=== PATIENT | male | born 1990 | race American Indian/Alaskan Native ===

== ENCOUNTER 2021-09-28 22:49 | Inpatient (IN) | payer OTHER ==
[2021-09-29] MEDS ORDERED: SODIUM CHLORIDE 0.9% 1000 ML IV SOLN IV ONE (03:44)
[2021-09-29 04:02] LABS: Basophils # (Auto) 0.1 K/mm3 (0.0-0.1); Basophils % (Auto) 0.6 % (0.0-1.8); Eosinophils # (Auto) 0.1 K/mm3 (0.0-0.4); Eosinophils % (Auto) 0.8 % (0.0-4.3); Hemoglobin 12.6 gm/dl (11.8-15.2); Lymphocytes # (Auto) 1.5 K/mm3 (1.2-5.4); Lymphocytes % (Auto) 14.6 % (13.4-35.0); Mean Corpuscular HGB Conc 32 % (32-34); Mean Corpuscular Volume 86 fl (84-94); Monocytes # (Auto) 0.9 K/mm3 (0.0-0.8); Monocytes % (Auto) 9.1 % (0.0-7.3); Platelet Count 282 K/mm3 (140-440); Red Blood Count 4.53 M/mm3 (3.65-5.03); Red Cell Distribution Width 13.2 % (13.2-15.2)
[2021-09-29 04:30] LABS: BUN/Creatinine Ratio 9; Blood Urea Nitrogen 9 mg/dL (9-20); Hemolysis Index 8
[2021-09-29] MEDS ORDERED: INSULIN REGULAR, HUMAN 100 UNITS/1 ML IV ONE (04:34)
--- NOTE | 2021-09-29 06:31 | XRay Report ---
RIGHT TIBIA-FIBULA 2 VIEW(S) INDICATION / CLINICAL INFORMATION: wound to lower leg COMPARISON: None available. FINDINGS: BONES / JOINT(S): No acute fracture or subluxation. No significant arthritis. SOFT TISSUES: No significant abnormality. ADDITIONAL FINDINGS: None. Signer Name: Da Jaffe DO Signed: 09/29/2021 6:27 AM Workstation Name: [id number]
--- NOTE | 2021-09-29 07:06 | Emergency Department Report ---
ED General Adult HPI - General Chief complaint: Wound/Laceration Stated complaint: POSS LEG INFECTION/OPEN WOUND Time Seen by Provider: 09/29/21 03:40 Source: patient Mode of arrival: Ambulatory Limitations: No Limitations - History of Present Illness Initial comments: 31-year-old male with history of diabetes presents emergency department complaining of wound to his right lower extremity which got worsened after he went swimming. States that he had a wound present for an overall week and then he put a protective bandage on it to get into a chlorinated swimming pool and after doing so noticed that the actual wound began to spread. He has been tr mae to treat it with [id number] medications but the does not appear to have been responding now there is normal red and swollen [place] 6 of the treatment alternatives but ports no fever, chills, sweats. No abdomen abdominal pain,. States that he is compliant with his treatment Quality: dull Consistency: constant Improves with: none Worsens with: movement Associated Symptoms: denies: malaise, syncope, weakness - Related Data Allergies Allergy/AdvReac Type Severity Reaction Status Date / Time No Known Allergies Allergy Verified 09/28/21 23:08 ED Review of Systems ROS: Stated complaint: POSS LEG INFECTION/OPEN WOUND Other details as noted in HPI Comment: All other systems reviewed and negative ED Past Medical Hx - Past Medical History Previous Medical History?: Yes Hx Diabetes: Yes - Surgical History Past Surgical History?: No - Social History Smoking Status: Never Smoker Substance Use Type: None ED Physical Exam - General Limitations: No Limitations General appearance: alert, in no apparent distress - Head Head exam: Present: atraumatic, normocephalic - Eye Eye exam: Present: normal appearance, PERRL, EOMI Pupils: Present: normal accommodation - ENT ENT exam: Present: normal exam, normal orophraynx, mucous membranes moist, TM's normal bilaterally - Neck Neck exam: Present: normal inspection, tenderness, full ROM - Respiratory Respiratory exam: Present: normal lung sounds bilaterally. Absent: respiratory distress, wheezes, rales, chest wall tenderness, accessory muscle use - Cardiovascular Cardiovascular Exam: Present: regular rate, normal rhythm. Absent: systolic murmur, diastolic murmur, rubs, gallop - GI/Abdominal GI/Abdominal exam: Present: soft, normal bowel sounds - Rectal Rectal exam: Present: deferred - Extremities Exam Extremities exam: Present: normal inspection, tenderness, normal capillary refill - Expanded Lower Extremity Exam Right Lower Leg exam: Present: tenderness, swelling, ecchymosis 1 - 3 venous stasis ulcers to this region that the central being largest 3 cm in diameter and the other is being 1 to 1.5 cm. Local swelling and cellulitis is noted. No lymphangitis present. The wounds appear to be fairly clean with minimal exudate. No discharge is noted. No subcutaneous emphysema is present. - Back Exam Back exam: Present: normal inspection. Absent: CVA tenderness (R), CVA tenderness (L) - Neurological Exam Neurological exam: Present: alert, oriented X3 - Psychiatric Psychiatric exam: Present: normal affect, normal mood - Skin Skin exam: Present: warm, dry, intact, normal color. Absent: rash ED Course Vital Signs 09/28/21 23:06 Temperature 99.3 F Pulse Rate 122 H Respiratory 18 Rate Blood Pressure 122/70 [Left] O2 Sat by Pulse 98 Oximetry ED Medical Decision Making - Lab Data Result diagrams: 09/29/21 03:46 09/29/21 03:46 - Medical Decision Making A 31-year-old diabetic male with what appears to be uncontrolled diabetes with blood sugar being over 600 in conjunction with elevated lactic acid accompanying this progressively worsening venous stasis ulcer wound that is not responding to outpatient therapy. He is already sought treatment at the urgent care x2 and and however the wound continues to progress despite treatment efforts. He has been dosed with 900 of clindamycin as well as fluids along the sepsis protocol. Case was discussed with the hospitalist who is aware of the findings and agrees with the admission. I did discuss the admission with Sebastian as well. Critical care attestation.: If time is entered above; I have spent that time in minutes in the direct care of this critically ill patient, excluding procedure time. ED Disposition Clinical Impression: Infected ulcer of skin, Hyperglycemia Disposition: HOME / SELF CARE / HOMELESS Is pt being admited?: Yes Does the pt Need Aspirin: No Condition: Stable
[2021-09-29] MEDS ORDERED: NALOXONE 0.4 MG/1 ML INJ IV PRN (07:38)
[2021-09-29] MEDS ORDERED: DEXTROSE 50% IN WATER (25GM) 50 ML SYRINGE IV PRN (07:38)
--- NOTE | 2021-09-29 07:38 | History and Physical Report ---
History of Present Illness Date of examination: 09/29/21 Date of admission: 09/29/2021 Chief complaint: Left lower extremity chronic open wound/hyperglycemia History of present illness: 31-year-old male patient with significant past medical history of type 2 diabetes mellitus on insulin, dyslipidemia presented to the emergency room with infected diabetic leg wound which patient had for nearly 1 month. Patient denies any history of trauma, patient is on insulin for his diabetes, initial work-up is consistent with severe hyper glycemia with blood sugars of more than 600, however patient did not have acidosis or ketosis and patient was not in DKA. Patient denies any fever, no nausea vomiting or abdominal pain Patient claims compliance with his medications except for the last few days. X-ray leg tibia and fibula reveal no acute fracture or subluxation no signif icant arthritis. Past History Past Medical History: diabetes, hypertension, hyperlipidemia Past Surgical History: denies: No surgical history Social history: denies: smoking, alcohol abuse, prescription drug abuse Family history: no significant family history Medications and Allergies Allergies Allergy/AdvReac Type Severity Reaction Status Date / Time No Known Allergies Allergy Verified 09/28/21 23:08 Home Medications Medication Instructions Recorded Confirmed Last Taken Type AtorvaSTATin [Lipitor] 10 mg PO QHS 09/29/21 09/29/21 1 Day Ago History ~09/28/21 metFORMIN [Glucophage] 500 mg PO QDAY 09/29/21 09/29/21 1 Day Ago History ~09/28/21 Review of Systems Constitutional: weakness, no weight loss, no weight gain, no fever Ears, nose, mouth and throat: no nasal congestion, no nasal discharge Cardiovascular: no chest pain, no orthopnea, no shortness of breath Respiratory: no cough, no shortness of breath Gastrointestinal: no abdominal pain, no nausea, no vomiting Genitourinary Male: no dysuria, no hematuria Musculoskeletal: no myalgias, no arthritis Exam - Constitutional Vitals: Temp Pulse Resp BP Pulse Ox 99.3 F 122 H 18 122/70 98 09/28/21 23:06 09/28/21 23:06 09/28/21 23:06 09/28/21 23:06 09/28/21 23:06 General appearance: Present: no acute distress, well-nourished - EENT Eyes: Present: PERRL, EOM intact - Neck Neck: Present: supple, normal ROM - Respiratory Respiratory effort: normal Respiratory: negative: diminished, rales, rhonchi, wheezing - Cardiovascular Rhythm: regular Heart Sounds: Present: S1 & S2 - Extremities Extremities: No edema, abnormal (Right lower extremity leg nonhealing multiple diabetic ulcers) Extremity abnormal: edema - Abdominal General gastrointestinal: Present: soft, non-tender, non-distended, normal bowel sounds - Integumentary Integumentary: Present: clear, warm - Musculoskeletal Musculoskeletal: strength equal bilaterally, generalized weakness - Psychiatric Psychiatric: appropriate mood/affect, cooperative - Neurologic Neurologic: moves all extremities Results - Labs CBC & Chem 7: 09/29/21 03:46 09/29/21 08:00 Labs: Abnormal lab results 09/29/21 09/29/21 09/29/21 Range/Units 03:46 03:46 04:00 [place] % (Auto) 9.1 H (0.0-7.3) % [place] # (Auto) 0.9 H (0.0-0.8) K/mm3 Seg Neutrophils % 74.9 H (40.0-70.0) % Sodium 129 L (137-145) mmol/L Chloride 93.4 L (98-107) mmol/L Glucose 640 H* (75-100) mg/dL Lactic Acid 2.50 H* (0.7-2.0) mmol/L Assessment and Plan - Patient Problems (1) Hyperglycemia Onset Date: ~09/29/21 Current Visit: Yes Status: Acute Plan to address problem: Patient blood sugars more than 600 due to noncompliance with diabetic medication received 10 units Regular insulin IV x1 by ID ED Accu-Cheks, sliding scale coverage, ADA diet, long-acting insulin Patient is not in acidosis or ketosis anion gap is within normal limits Rigorous IV hydration, long-acting insulin Novolin 70/30, diabetic education, nutrition education Possible home health nurse at discharge for disease monitoring Hemoglobin A1c (2) Hyponatremia Onset Date: ~09/29/21 Current Visit: Yes Status: Acute Plan to address problem: Hyponatremia, probably pseudohyponatremia due to Very high blood sugars, as blood sugars improve, sodium levels will improve Vigorous IV hydration monitor electrolytes (3) Pseudohyponatremia Onset Date: ~09/29/21 Current Visit: Yes Status: Acute Plan to address problem: Due to severe hyperglycemia, as blood sugars improved sodium levels improved IV normal saline monitor electrolytes check magnesium (4) Lactic acidosis due to diabetes mellitus Onset Date: ~09/29/21 Current Visit: Yes Status: Acute Plan to address problem: Severe lactic acidosis probably secondary to sepsis due to cellulitis nonhealing ulcer As well as due to severe hyperglycemia IV fluids, treat the underlying cause, closely monitor lactate levels (5) Non-healing ulcer of foot Onset Date: ~09/29/21 Current Visit: Yes Status: Acute Qualifiers: Laterality: right Plan to address problem: Right-sided nonhealing foot ulcer Due to diabetes mellitus. Elevate the limb, empiric antibiotics Vanco Zosyn Wound care, wound cultures, control of blood sugars (6) Diabetic foot ulcer Current Visit: Yes Status: Acute Qualifiers: Diabetes mellitus type: type 2 Laterality: right Plan to address problem: Diabetic foot and leg ulcers right Elevate the limb, wound care, empiric antibiotics Vanco and Zosyn Wound care, wound cultures, ID consult Surgical consult if debridement is needed needed (7) History of type 2 diabetes mellitus Current Visit: Yes Status: Acute Plan to address problem: , Monitor blood sugars, Accu-Chek, sliding scale coverage, ADA diet, long-acting insulin as needed. We will closely monitor the patient and adjust management as needed HbA1c 14.0 (8) Dyslipidemia Current Visit: Yes Status: Acute Plan to address problem: Low-cholesterol diet, and statin (9) DVT prophylaxis Current Visit: Yes Status: Acute Plan to address problem: Subcu Lovenox/SCDs
[2021-09-29] MEDS ORDERED: ACETAMINOPHEN 325 MG TAB PO PRN (08:00)
[2021-09-29 08:36] LABS: Alanine Aminotransferase 13 units/L (7-56); Albumin 4.2 g/dL (3.9-5); BUN/Creatinine Ratio 10; Blood Urea Nitrogen 8 mg/dL (9-20); Calcium 8.9 mg/dL (8.4-10.2); Chol/HDL Ratio 4.45 %; HDL Cholesterol 42 mg/dL (40-59); Hemolysis Index 7; LDL Cholesterol,Direct 135 mg/dL (50-130)
[2021-09-29] MEDS ORDERED: MORPHINE 4 MG/1 ML INJ IV PRN (09:00)
[2021-09-29] MEDS ORDERED: ONDANSETRON 4 MG/2 ML INJ IV PRN (09:00)
[2021-09-29] MEDS ORDERED: MORPHINE 2 MG/1 ML INJ IV PRN (09:00)
[2021-09-29] MEDS ORDERED: ENOXAPARIN 40 MG/0.4 ML INJ SUB-Q SCH (10:00)
[2021-09-29] MEDS ORDERED: VANCOMYCIN/NS 1 GM/250 ML 1 GM/250 ML BAG IV SCH (10:00)
[2021-09-29] MEDS ORDERED: VANCOMYCIN PHARMACY TO DOSE IV SCH (10:00)
[2021-09-29] MEDS: INSULIN NPH/REGULAR 70/30 INJ SUB-Q SCH ×2 (10:44→18:07)
[2021-09-29] MEDS ORDERED: VANCOMYCIN 1,500 MG in SODIUM CHLORIDE 0.9% 500 ML 500 ML IV ONE (11:00)
[2021-09-29] MEDS: INSULIN REGULAR, HUMAN 100 UNITS/1 ML SUB-Q SCH ×4 (15:57→22:48)
[2021-09-29] MEDS: PIPERACILLIN/TAZOBACTAM 3.375 3.375 GM/50 ML BAG IV SCH ×2 (15:58→18:13)
[2021-09-29] MEDS: SODIUM CHLORIDE 0.9% 1000 ML 1,000 ML IV SCH (16:55)
[2021-09-29] MEDS ORDERED: oxyCODONE /ACETAMINOPHEN 5-325MG TAB PO PRN (17:08)
[2021-09-29] MEDS ORDERED: ZOLPIDEM 5 MG TAB PO PRN (22:00)
[2021-09-29] MEDS: VANCOMYCIN 1,250 MG in SODIUM CHLORIDE 0.9% 250ML 250 ML IV SCH (22:48)
[2021-09-29] MEDS: ENOXAPARIN 40 MG/0.4 ML INJ SUB-Q SCH (22:48)
[2021-09-30] MEDS: PIPERACILLIN/TAZOBACTAM 3.375 3.375 GM/50 ML BAG IV SCH (02:12)
[2021-09-30] MEDS: SODIUM CHLORIDE 0.9% 1000 ML 1,000 ML IV SCH ×3 (02:13→23:06)
[2021-09-30 05:09] LABS: Basophils % (Auto) 0.4 % (0.0-1.8); Eosinophils # (Auto) 0.2 K/mm3 (0.0-0.4); Eosinophils % (Auto) 2.6 % (0.0-4.3); Hematocrit 34.4 % (35.5-45.6); Hemoglobin 11.6 gm/dl (11.8-15.2); Lymphocytes % (Auto) 27.2 % (13.4-35.0); Mean Corpuscular HGB Conc 34 % (32-34); Mean Corpuscular Volume 84 fl (84-94); Monocytes # (Auto) 0.7 K/mm3 (0.0-0.8); Monocytes % (Auto) 9.4 % (0.0-7.3); Platelet Count 280 K/mm3 (140-440); Red Blood Count 4.09 M/mm3 (3.65-5.03)
[2021-09-30 05:35] LABS: BUN/Creatinine Ratio 10; Blood Urea Nitrogen 8 mg/dL (9-20); Calcium 8.3 mg/dL (8.4-10.2); Hemolysis Index 0
[2021-09-30] MEDS: INSULIN NPH/REGULAR 70/30 INJ SUB-Q SCH ×2 (08:27→17:13)
[2021-09-30] MEDS: INSULIN REGULAR, HUMAN 100 UNITS/1 ML SUB-Q SCH ×4 (08:28→22:49)
--- NOTE | 2021-09-30 08:37 | Progress Note ---
Assessment and Plan Assessment and plan: -- Hyperglycemia/hyperosmolar hyperglycemia Patient blood sugars more than 600 due to noncompliance with diabetic medication received 10 units Accu-Cheks, sliding scale coverage, ADA diet, Novolin 70/30 Rigorous IV hydration, long-acting insulin Novolin 70/30, diabetic education, nutrition education Possible home health nurse at discharge for disease monitoring Hemoglobin A1c 14.0 --Hyponatremia; Hyponatremia, probably pseudohyponatremia due to Very high blood sugars, as blood sugars improve, sodium levels will improve Vigorous IV hydration monitor electrolytes --Pseudohyponatremia Due to severe hyperglycemia, as blood sugars improved sodium levels improved IV normal saline monitor electrolytes check magnesium --Lactic acidosis due to diabetes mellitus Severe lactic acidosis probably secondary to sepsis due to cellulitis nonhealing ulcer As well as due to severe hyperglycemia IV fluids, treat the underlying cause, closely monitor lactate levels --Non-healing ulcer of foot Right-sided nonhealing foot ulcer Due to diabetes mellitus. Elevate the limb, empiric antibiotics Vanco Zosyn Wound care, wound cultures, control of blood sugars -- Diabetic foot ulcer Diabetic foot and leg ulcers right Elevate the limb, wound care, empiric antibiotics Vanco and Zosyn Wound care, wound cultures, ID consult Surgical consult if debridement is needed needed -- History of type 2 diabetes mellitus, Continue Accu-Cheks sliding scale coverage ADA diet Long-acting insulin, HbA1c 14.0 --Dyslipidemia Low-cholesterol diet, and statin --DVT prophylaxis Subcu Lovenox/SCDs History Interval history: I have seen and examined the patient at the bedside Patient's chart and medications reviewed Patient feels slightly better complains of pain in the leg Blood sugars reasonable control No new events reported by the nursing Vital signs noted Hospitalist Physical - Constitutional Vitals: Temp Pulse Resp BP Pulse Ox 98.0 F 88 20 117/75 97 09/29/21 22:15 09/29/21 22:15 09/29/21 23:36 09/29/21 22:15 09/30/21 08:09 General appearance: Present: no acute distress, well-nourished - EENT Eyes: Present: PERRL, EOM intact - Neck Neck: Present: supple, normal ROM - Respiratory Respiratory effort: normal Respiratory: bilateral: diminished, negative: rales, rhonchi, wheezing - Cardiovascular Rhythm: regular Heart Sounds: Present: S1 & S2 - Extremities Extremities: no ischemia, abnormal (Diabetic foot ulcers right leg) - Abdominal General gastrointestinal: soft, non-tender, non-distended, normal bowel sounds - Integumentary Integumentary: Present: clear, warm - Psychiatric Psychiatric: appropriate mood/affect, cooperative - Neurologic Neurologic: CNII-XII intact, moves all extremities Results - Labs CBC & Chem 7: 09/30/21 04:16 09/30/21 04:16 Labs: Laboratory Last Values WBC 7.3 K/mm3 (4.5-11.0) 09/30/21 04:16 RBC 4.09 M/mm3 (3.65-5.03) 09/30/21 04:16 Hgb 11.6 gm/dl (11.8-15.2) L 09/30/21 04:16 Hct 34.4 % (35.5-45.6) L 09/30/21 04:16 MCV 84 fl (84-94) 09/30/21 04:16 MCH 28 pg (28-32) 09/30/21 04:16 MCHC 34 % (32-34) 09/30/21 04:16 RDW 13.0 % (13.2-15.2) L 09/30/21 04:16 Plt Count 280 K/mm3 (140-440) 09/30/21 04:16 Lymph % (Auto) 27.2 % (13.4-35.0) 09/30/21 04:16 [place] % (Auto) 9.4 % (0.0-7.3) H 09/30/21 04:16 Eos % (Auto) 2.6 % (0.0-4.3) 09/30/21 04:16 Baso % (Auto) 0.4 % (0.0-1.8) 09/30/21 04:16 Lymph # (Auto) 2.0 K/mm3 (1.2-5.4) 09/30/21 04:16 [place] # (Auto) 0.7 K/mm3 (0.0-0.8) 09/30/21 04:16 Eos # (Auto) 0.2 K/mm3 (0.0-0.4) 09/30/21 04:16 Baso # (Auto) 0.0 K/mm3 (0.0-0.1) 09/30/21 04:16 Seg Neutrophils % 60.4 % (40.0-70.0) 09/30/21 04:16 Seg Neutrophils # 4.4 K/mm3 (1.8-7.7) 09/30/21 04:16 VBG pH 7.364 (7.320-7.420) 09/29/21 05:01 Sodium 137 mmol/L (137-145) 09/30/21 04:16 Potassium 3.8 mmol/L (3.6-5.0) 09/30/21 04:16 Chloride 104.9 mmol/L (98-107) 09/30/21 04:16 Carbon Dioxide 24 mmol/L (22-30) 09/30/21 04:16 Anion Gap 12 mmol/L 09/30/21 04:16 BUN 8 mg/dL (9-20) L 09/30/21 04:16 Creatinine 0.8 mg/dL (0.8-1.3) 09/30/21 04:16 Estimated GFR > 60 ml/min 09/30/21 04:16 BUN/Creatinine Ratio 10 % 09/30/21 04:16 Glucose 166 mg/dL (75-100) H 09/30/21 04:16 POC Glucose 178 mg/dL (70-105) H 09/30/21 07:21 Hemoglobin A1c 14.0 % (4-6) H 09/29/21 08:00 Lactic Acid 1.70 mmol/L (0.7-2.0) 09/29/21 07:01 Calcium 8.3 mg/dL (8.4-10.2) L 09/30/21 04:16 Total Bilirubin 0.50 mg/dL (0.1-1.2) 09/29/21 08:00 AST 12 units/L (5-40) 09/29/21 08:00 ALT 13 units/L (7-56) 09/29/21 08:00 Alkaline Phosphatase 117 units/L (35-129) 09/29/21 08:00 Total Protein 8.1 g/dL (6.3-8.2) 09/29/21 08:00 Albumin 4.2 g/dL (3.9-5) 09/29/21 08:00 Albumin/Globulin Ratio 1.1 % 09/29/21 08:00 Triglycerides 95 mg/dL (2-149) 09/29/21 08:00 Cholesterol 187 mg/dL (50-199) 09/29/21 08:00 LDL Cholesterol Direct 135 mg/dL (50-130) H 09/29/21 08:00 HDL Cholesterol 42 mg/dL (40-59) 09/29/21 08:00 Cholesterol/HDL Ratio 4.45 % 09/29/21 08:00 Microbiology: Microbiology 09/29/21 04:00 Peripheral/Venous Blood Culture - Preliminary NO GROWTH AFTER 24 HOURS 09/29/21 04:30 Peripheral/Venous Blood Culture - Preliminary NO GROWTH AFTER 24 HOURS [place]/IV: Voiding Method Toilet Active Medications - Current Medications Current Medications: Generic Name Dose Route Start Last Admin Trade Name Freq PRN Reason Stop Dose Admin Acetaminophen 650 mg 09/29/21 08:00 Acetaminophen 325 Mg Tab PO Q4H PRN Pain MILD(1-3)/Fever >100.5/GRIFFIN Bisacodyl 10 mg 09/29/21 10:00 Bisacodyl 10 Mg Rect Supp PA QDAY PRN Constipation unrelieved by MOM Dextrose 50 ml 09/29/21 07:38 Dextrose 50% In Water (25gm) 50 Ml Syringe IV Q30MIN PRN Hypoglycemia Protocol Enoxaparin Sodium 40 mg 09/29/21 22:00 09/29/21 22:48 Enoxaparin 40 Mg/0.4 Ml Inj SUB-Q 40 mg QDAY@2200 CELINA Administration Protocol Sodium Chloride 1,000 mls @ 150 mls/hr 09/29/21 09:00 09/30/21 02:13 Nacl 0.9% 1000 Ml IV 150 mls/hr DIRECT CELINA Administration Vancomycin HCl 1,250 mg/ 275 mls @ 166.667 mls/hr 09/29/21 23:00 09/29/21 22:48 Sodium Chloride IV 166.667 mls/hr Q12H CELINA Administration Ceftriaxone Sodium 2 gm in 100 mls @ 200 mls/hr 09/30/21 10:00 Rocephin/Ns 2 Gm/100 Ml IV Q24HR CELINA Insulin Human Isoph/Insulin Regular 20 unit 09/30/21 08:00 09/30/21 08:27 Insulin Nph/Regular 70/30 Inj SUB-Q 20 unit BIDDIAB CELINA Administration Insulin Human Regular 0 units 09/29/21 11:30 09/30/21 08:28 Insulin Regular, Human 100 Units/1 Ml SUB-Q 3 units ACHS CELINA Administration Protocol Naloxone HCl 0.1 mg 09/29/21 07:38 Naloxone 0.4 Mg/1 Ml Inj IV Q2MIN PRN Res Rate </= 8 or 02 SAT < 92% Ondansetron HCl 4 mg 09/29/21 09:00 Ondansetron 4 Mg/2 Ml Inj IV Q8H PRN Nausea And Vomiting Oxycodone/Acetaminophen 1 tab 09/29/21 17:08 Oxycodone /Acetaminophen 5-325mg Tab PO Q6H PRN Pain, Moderate (4-6) Sodium Chloride 10 ml 09/29/21 10:00 09/29/21 22:49 Sodium Chloride 0.9% 10 Ml Flush Syringe IV 10 ml BID CELINA Administration Sodium Chloride 10 ml 09/29/21 07:38 Sodium Chloride 0.9% 10 Ml Flush Syringe IV PRN PRN LINE FLUSH Zolpidem Tartrate 5 mg 09/29/21 22:00 Zolpidem 5 Mg Tab PO QHS PRN Insomnia
[2021-09-30] MEDS: cefTRIAXone/NS 2 GM/100 ML 2 GM/100 ML BAG IV SCH (10:03)
[2021-09-30] MEDS: VANCOMYCIN 1,250 MG in SODIUM CHLORIDE 0.9% 250ML 250 ML IV SCH ×2 (11:56→22:52)
[2021-09-30] MEDS: ENOXAPARIN 40 MG/0.4 ML INJ SUB-Q SCH (22:50)
[2021-10-01] MEDS: INSULIN REGULAR, HUMAN 100 UNITS/1 ML SUB-Q SCH ×3 (08:23→16:23)
--- NOTE | 2021-10-01 08:56 | Progress Note ---
Assessment and Plan Assessment and plan: -- Hyperglycemia/hyperosmolar hyperglycemia Patient blood sugars more than 600 due to noncompliance with diabetic medication received 10 units Accu-Cheks, sliding scale coverage, ADA diet, Novolin 70/30 Rigorous IV hydration, long-acting insulin Novolin 70/30, diabetic education, nutrition education Possible home health nurse at discharge for disease monitoring Hemoglobin A1c 14.0 --Hyponatremia; Hyponatremia, probably pseudohyponatremia due to Very high blood sugars, as blood sugars improve, sodium levels will improve Vigorous IV hydration monitor electrolytes --Pseudohyponatremia Due to severe hyperglycemia, as blood sugars improved sodium levels improved IV normal saline monitor electrolytes check magnesium --Lactic acidosis due to diabetes mellitus Severe lactic acidosis probably secondary to sepsis due to cellulitis nonhealing ulcer As well as due to severe hyperglycemia IV fluids, treat the underlying cause, closely monitor lactate levels --Non-healing ulcer of foot Right-sided nonhealing foot ulcer Due to diabetes mellitus. Elevate the limb, empiric antibiotics Vanco Zosyn Wound care, wound cultures, control of blood sugars -- Diabetic foot ulcer Diabetic foot and leg ulcers right Elevate the limb, wound care, empiric antibiotics Vanco and Zosyn Wound care, wound cultures, ID consult Surgical consult if debridement is needed needed -- History of type 2 diabetes mellitus, Continue Accu-Cheks sliding scale coverage ADA diet Long-acting insulin, HbA1c 14.0 --Dyslipidemia Low-cholesterol diet, and statin --DVT prophylaxis Subcu Lovenox/SCDs Hospitalist Physical - Constitutional Vitals: Temp Pulse Resp BP Pulse Ox 97.8 F 72 20 108/66 98 10/01/21 04:03 10/01/21 04:03 10/01/21 08:00 10/01/21 04:03 10/01/21 08:00 General appearance: Present: no acute distress, well-nourished Results - Labs CBC & Chem 7: 09/30/21 04:16 09/30/21 04:16 Labs: Laboratory Last Values WBC 7.3 K/mm3 (4.5-11.0) 09/30/21 04:16 RBC 4.09 M/mm3 (3.65-5.03) 09/30/21 04:16 Hgb 11.6 gm/dl (11.8-15.2) L 09/30/21 04:16 Hct 34.4 % (35.5-45.6) L 09/30/21 04:16 MCV 84 fl (84-94) 09/30/21 04:16 MCH 28 pg (28-32) 09/30/21 04:16 MCHC 34 % (32-34) 09/30/21 04:16 RDW 13.0 % (13.2-15.2) L 09/30/21 04:16 Plt Count 280 K/mm3 (140-440) 09/30/21 04:16 Lymph % (Auto) 27.2 % (13.4-35.0) 09/30/21 04:16 [place] % (Auto) 9.4 % (0.0-7.3) H 09/30/21 04:16 Eos % (Auto) 2.6 % (0.0-4.3) 09/30/21 04:16 Baso % (Auto) 0.4 % (0.0-1.8) 09/30/21 04:16 Lymph # (Auto) 2.0 K/mm3 (1.2-5.4) 09/30/21 04:16 [place] # (Auto) 0.7 K/mm3 (0.0-0.8) 09/30/21 04:16 Eos # (Auto) 0.2 K/mm3 (0.0-0.4) 09/30/21 04:16 Baso # (Auto) 0.0 K/mm3 (0.0-0.1) 09/30/21 04:16 Seg Neutrophils % 60.4 % (40.0-70.0) 09/30/21 04:16 Seg Neutrophils # 4.4 K/mm3 (1.8-7.7) 09/30/21 04:16 VBG pH 7.364 (7.320-7.420) 09/29/21 05:01 Sodium 137 mmol/L (137-145) 09/30/21 04:16 Potassium 3.8 mmol/L (3.6-5.0) 09/30/21 04:16 Chloride 104.9 mmol/L (98-107) 09/30/21 04:16 Carbon Dioxide 24 mmol/L (22-30) 09/30/21 04:16 Anion Gap 12 mmol/L 09/30/21 04:16 BUN 8 mg/dL (9-20) L 09/30/21 04:16 Creatinine 0.8 mg/dL (0.8-1.3) 09/30/21 04:16 Estimated GFR > 60 ml/min 09/30/21 04:16 BUN/Creatinine Ratio 10 % 09/30/21 04:16 Glucose 166 mg/dL (75-100) H 09/30/21 04:16 POC Glucose 148 mg/dL (70-105) H 10/01/21 07:31 Hemoglobin A1c 14.0 % (4-6) H 09/29/21 08:00 Lactic Acid 1.70 mmol/L (0.7-2.0) 09/29/21 07:01 Calcium 8.3 mg/dL (8.4-10.2) L 09/30/21 04:16 Total Bilirubin 0.50 mg/dL (0.1-1.2) 09/29/21 08:00 AST 12 units/L (5-40) 09/29/21 08:00 ALT 13 units/L (7-56) 09/29/21 08:00 Alkaline Phosphatase 117 units/L (35-129) 09/29/21 08:00 Total Protein 8.1 g/dL (6.3-8.2) 09/29/21 08:00 Albumin 4.2 g/dL (3.9-5) 09/29/21 08:00 Albumin/Globulin Ratio 1.1 % 09/29/21 08:00 Triglycerides 95 mg/dL (2-149) 09/29/21 08:00 Cholesterol 187 mg/dL (50-199) 09/29/21 08:00 LDL Cholesterol Direct 135 mg/dL (50-130) H 09/29/21 08:00 HDL Cholesterol 42 mg/dL (40-59) 09/29/21 08:00 Cholesterol/HDL Ratio 4.45 % 09/29/21 08:00 Microbiology: Microbiology 09/29/21 04:00 Peripheral/Venous Blood Culture - Preliminary NO GROWTH AFTER 48 HOURS 09/29/21 04:30 Peripheral/Venous Blood Culture - Preliminary [place]/IV: Voiding Method Toilet Active Medications - Current Medications Current Medications: Generic Name Dose Route Start Last Admin Trade Name Freq PRN Reason Stop Dose Admin Acetaminophen 650 mg 09/29/21 08:00 Acetaminophen 325 Mg Tab PO Q4H PRN Pain MILD(1-3)/Fever >100.5/GRIFFIN Bisacodyl 10 mg 09/29/21 10:00 Bisacodyl 10 Mg Rect Supp HI QDAY PRN Constipation unrelieved by MOM Dextrose 50 ml 09/29/21 07:38 Dextrose 50% In Water (25gm) 50 Ml Syringe IV Q30MIN PRN Hypoglycemia Protocol Enoxaparin Sodium 40 mg 09/29/21 22:00 09/30/21 22:50 Enoxaparin 40 Mg/0.4 Ml Inj SUB-Q 40 mg QDAY@2200 CELINA Administration Protocol Sodium Chloride 1,000 mls @ 150 mls/hr 09/29/21 09:00 09/30/21 23:06 Nacl 0.9% 1000 Ml IV 150 mls/hr DIRECT CELINA Administration Vancomycin HCl 1,250 mg/ 275 mls @ 166.667 mls/hr 09/29/21 23:00 09/30/21 22:52 Sodium Chloride IV 166.667 mls/hr Q12H CELINA Administration Ceftriaxone Sodium 2 gm in 100 mls @ 200 mls/hr 09/30/21 10:00 09/30/21 10:03 Rocephin/Ns 2 Gm/100 Ml IV 200 mls/hr Q24HR CELINA Administration Insulin Human Isoph/Insulin Regular 20 unit 09/30/21 08:00 09/30/21 17:13 Insulin Nph/Regular 70/30 Inj SUB-Q 20 unit BIDDIAB CELINA Administration Insulin Human Regular 0 units 09/29/21 11:30 10/01/21 08:23 Insulin Regular, Human 100 Units/1 Ml SUB-Q Not Given ACHS [facility] Protocol Naloxone HCl 0.1 mg 09/29/21 07:38 Naloxone 0.4 Mg/1 Ml Inj IV Q2MIN PRN Res Rate </= 8 or 02 SAT < 92% Ondansetron HCl 4 mg 09/29/21 09:00 Ondansetron 4 Mg/2 Ml Inj IV Q8H PRN Nausea And Vomiting Oxycodone/Acetaminophen 1 tab 09/29/21 17:08 Oxycodone /Acetaminophen 5-325mg Tab PO Q6H PRN Pain, Moderate (4-6) Sodium Chloride 10 ml 09/29/21 10:00 09/30/21 22:51 Sodium Chloride 0.9% 10 Ml Flush Syringe IV 10 ml BID CELINA Administration Sodium Chloride 10 ml 09/29/21 07:38 Sodium Chloride 0.9% 10 Ml Flush Syringe IV PRN PRN LINE FLUSH Zolpidem Tartrate 5 mg 09/29/21 22:00 Zolpidem 5 Mg Tab PO QHS PRN Insomnia
[2021-10-01] MEDS: cefTRIAXone/NS 2 GM/100 ML 2 GM/100 ML BAG IV SCH (09:15)
[2021-10-01] MEDS: INSULIN NPH/REGULAR 70/30 INJ SUB-Q SCH (09:15)
[2021-10-01] MEDS: VANCOMYCIN 1,250 MG in SODIUM CHLORIDE 0.9% 250ML 250 ML IV SCH (10:16)
[2021-10-01 12:52] VITALS: BP 137/86
--- NOTE | 2021-10-01 13:46 | Discharge Summary ---
Providers - Providers Date of Admission: 09/29/21 09:51 Date of discharge: 10/01/21 Attending physician: DERREK SHULTZ 09/29/21 19:15 Consult to Wound/ET Nurse [CONS] Urgent Reason For Exam: wound eval rt. LE wound infection Primary care physician: MABEL CEDEÑO Hospitalization Condition: Stable Hospital course: -- Hyperglycemia/hyperosmolar hyperglycemia Patient blood sugars more than 600 due to noncompliance with diabetic medication received 10 units Accu-Cheks, sliding scale coverage, ADA diet, Novolin 70/30 Rigorous IV hydration, long-acting insulin Novolin 70/30, diabetic education, nutrition education Possible home health nurse at discharge for disease monitoring Hemoglobin A1c 14.0 --Hyponatremia; Hyponatremia, probably pseudohyponatremia due to Very high blood sugars, as blood sugars improve, sodium levels will improve Vigorous IV hydration monitor electrolytes --Pseudohyponatremia Due to severe hyperglycemia, as blood sugars improved sodium levels improved IV normal saline monitor electrolytes check magnesium --Lactic acidosis due to diabetes mellitus Severe lactic acidosis probably secondary to sepsis due to cellulitis nonhealing ulcer As well as due to severe hyperglycemia IV fluids, treat the underlying cause, closely monitor lactate levels --Non-healing ulcer of foot Right-sided nonhealing foot ulcer Due to diabetes mellitus. Elevate the limb, empiric antibiotics Vanco Zosyn Wound care, wound cultures, control of blood sugars -- Diabetic foot ulcers Diabetic foot and leg ulcers right Elevate the limb, wound care, empiric antibiotics Vanco and Zosyn Wound care, wound cultures, ID consult Surgical consult if debridement is needed needed -- History of type 2 diabetes mellitus, Continue Accu-Cheks sliding scale coverage ADA diet Long-acting insulin, HbA1c 14.0 --Dyslipidemia Low-cholesterol diet, and statin --DVT prophylaxis Subcu Lovenox/SCDs Disposition: 01 HOME / SELF CARE / HOMELESS Final Discharge Diagnosis (Prints w/discharge instructions): Hyperosmolar hyperglycemia. Type 2 diabetes mellitus. lactic acidosis. Pseudohyponatremia due to hyperglycemia resolved. Hyponatremia resolved nonhealing diabetic foot ulcer. dyslipidemia. Medical noncompliance Time spent for discharge: 35 min Exam - Constitutional Vitals: Temp Pulse Resp BP Pulse Ox 98.0 F 76 18 137/86 100 10/01/21 11:04 10/01/21 11:04 10/01/21 11:04 10/01/21 11:04 10/01/21 11:04 Plan Activity: advance as tolerated, fall precautions Diet: diabetic Wound: per wound nurse instructions Additional Instructions: Outpatient wound care clinic in [address] Navarrete,. If you have worsening symptoms contact MD or go to the nearest emergency room as needed. Strongly advised to comply with medications, diet, follow-up visits. Elevate the leg while resting Follow up with: MABEL CEDEÑO MD [Primary Care Provider] - 3-5 Days EFRAIN NAVARRETE MD [Staff Physician] - 7 Days Prescriptions: Clindamycin [Clindamycin CAP] 300 mg PO Q6H #40 cap Insulin Regular, Human [HumuLIN R] 5 units SUB-Q ACHS #2 vial Insulin NPH/Regular [NovoLIN 70/30] 20 unit SUB-Q BIDDIAB 30 Days #2 vial oxyCODONE /ACETAMINOPHEN [Percocet 5/325 mg] 1 tab PO Q6H PRN #14 tablet PRN Reason: Pain, Moderate (4-6)
== END 2021-10-01 17:05 | disposition home or self-care (01) | DRG 871 ==
LOC: ED 22:49 → 3A 09-29 09:51
PROVIDERS: ADMIT Internal Medicine; ATTEND Internal Medicine
DX: A41.9 Sepsis, unspecified organism (principal); E11.10 Type 2 diabetes mellitus with ketoacidosis without coma; L03.115 Cellulitis of right lower limb; E11.621 Type 2 diabetes mellitus with foot ulcer; I10 Essential (primary) hypertension; E78.5 Hyperlipidemia, unspecified; L97.519 Non-pressure chronic ulcer of other part of right foot with unspecified severity; Z91.19 Patient's noncompliance with other medical treatment and regimen
CPT/HCPCS: 36415; 80048; 80053; 80061; 82140; 82805; 82962; 83036; 85025; 87040; 87076; 87116; 87186; G0378; J7502; Q0177; Q9967; J0696; J1650; J1815; J2543; J3370; J7030; J7040; J7050